=== PATIENT | female | born 1950 | race Caucasian/White ===

== ENCOUNTER → 2017-08-15 | Outpatient (CLI) | payer OTHER ==
[2017-08-15 13:56] LABS: BILIRUBIN,URINE NEGATIVE (NEGATIVE); BLOOD/HEMOGLOBIN,URINE NEGATIVE (NEGATIVE); GLUCOSE, URINE NEGATIVE (NEGATIVE); KETONES,URINE NEGATIVE (NEGATIVE); LEUKOCYTE ESTERASE ,URINE 1+ (NEGATIVE); NITRITES,URINE NEGATIVE (NEGATIVE); PROTEIN,URINE 2+ (NEGATIVE); UROBILINOGEN,URINE NORMAL (NORMAL)
[2017-08-15 14:01] LABS: BASOPHILS # (AUTO) 0.1 X10^3/uL (0.0-0.1); BASOPHILS % (AUTO) 1.1 % (0.2-1.0); EOSINOPHILS # (AUTO) 0.1 x10^3/uL (0.0-0.2); EOSINOPHILS % (AUTO) 1.6 % (0.9-2.9); HEMATOCRIT 41.6 % (36.0-47.0); HEMOGLOBIN 14.1 g/dL (12.0-16.0); LYMPHOCYTES # (AUTO) 1.9 X10^3/uL (1.3-2.9); LYMPHOCYTES % (AUTO) 32.1 % (21.0-51.0); MEAN CORPUSCULAR HEMOGLOBIN 31.4 pg (27.0-34.0); MEAN CORPUSCULAR HGB CONC 33.9 g/dL (33.0-35.0); MEAN CORPUSCULAR VOLUME 92.5 fL (80.0-100.0); MEAN PLATELET VOLUME 10.9 fL (7.4-11.0); MONOCYTES # (AUTO) 0.6 x10^3/uL (0.3-0.8); MONOCYTES % (AUTO) 10.4 % (0.0-13.0); NEUTROPHILS # (AUTO) 3.3 x10^3/uL (2.2-4.8); NEUTROPHILS % (AUTO) 54.8 % (42.0-75.0); PLATELET COUNT 133 X10^3/uL (150.0-450.0); RED CELL DISTRIBUTION WIDTH 12.9 % (11.6-16.5)
[2017-08-15 14:02] LABS: AMORPHOUS SEDIMENT,UR 1+ /HPF (NEGATIVE); APPEARANCE,URINE CLEAR (CLEAR); BACTERIA,URINE 1+ /HPF (NEGATIVE); COLOR,URINE YELLOW (YELLOW); RBC,URINE NONE SEEN /HPF (NONE SEEN); SQUAMOUS EPITHELIAL CELL,UR RARE /HPF (NEGATIVE)
[2017-08-15 14:09] LABS: ALANINE AMINOTRANSFERASE 22 Units/L (12-78); ALBUMIN 3.8 g/dL (3.4-5.0); ALKALINE PHOSPHATASE 107 Units/L (46-116); ASPARTATE AMINO TRANSFERASE 18 Units/L (15-37); BLOOD UREA NITROGEN 16 mg/dL (7-18); CALCIUM 8.9 mg/dL (8.5-10.1); CARBON DIOXIDE 26.8 mmol/L (21-32); CHLORIDE 108 mmol/L (98-107); CREATININE 1.05 mg/dL (0.55-1.02); SODIUM 144 mmol/L (136-145); eGFR BLACK RACES > 60 (>60); eGFR NON BLACK RACES 56 (>60)
--- NOTE | 2017-08-15 14:26 | RAD ---
HISTORY: Preoperative evaluation for back surgery Study: PA and lateral views of the chest Comparison:None Findings: No infiltrate, effusion or pneumothorax identified. The cardiac and mediastinal contours are within n ormal limits. There are degenerative changes of the thoracolumbar spine. IMPRESSION: 1. No acute cardiopulmonary abnormality. Reported By:
[2017-08-15 15:54] LABS: ERYTHROCYTE SEDIMENTATION RATE 2 MM/HOUR (0-20)
== END ==
LOC: LAB 13:10
PROVIDERS: ATTEND Orthopaedic Surgery
DX: Z01.818 Encounter for other preprocedural examination (principal); Z11.8 Encounter for screening for other infectious and parasitic diseases; Z79.899 Other long term (current) drug therapy; Z01.811 Encounter for preprocedural respiratory examination; Z01.810 Encounter for preprocedural cardiovascular examination; S32.010A Wedge compression fracture of first lumbar vertebra, initial encounter for closed fracture; X58.XXXA Exposure to other specified factors, initial encounter
CPT/HCPCS: 36415; 71046; 80053; 81001; 85025; 85652; 86140; 87640; 87641; 93005; 93010

== ENCOUNTER 2017-08-19 07:44 | Day surgery (SDC) | payer OTHER ==
[~2017-08-19 07:44] MED LIST: MARCAINE 0.25% INJ ONE; XYLOCAINE 1% and EPINEPHRINE 1:100,000 ONE
[2017-08-19] MEDS ORDERED: ANCEF 1 GM IV PREMIX* 1 GM/50 ML BAG IV ONE (07:59)
[2017-08-19] MEDS ORDERED: D5 LR 1000 ML 1,000 ML IV ONE (07:59)
[2017-08-19] MEDS ORDERED: FENTANYL INJ 100 mcg ONE (08:20)
[2017-08-19] MEDS ORDERED: KETALAR ONE (08:21)
[2017-08-19 11:07] VITALS: BP 111/56
--- NOTE | 2017-08-19 13:55 | OR.GENERIC ---
Post-Op Note Generic - Post-Op Note Operative Report: PRE-OP DIAGNOSIS: Osteoporosis, pathologic fractures L1 POST-OP DIAGNOSIS: Osteoporosis, pathologic fractures L1 PROCEDURE: KYPHON Balloon Kyphoplasty at L1 Level Insertion of KYPHON HV-R bone cement under low pressure at L1 levels. Date of Surgery- 08/19/2017 ANESTHESIA: mild sedation, local anesthesia COMPLICATIONS: None BLOOD LOSS: 10 cc approx. INDICATIONS: Patient is a 66-year-old white female who presents to the office for evaluation of the back pain. She reports that on a day before she was lifting a heavy antique bed with her grandson. She noticed hat when she was lifting and turning she and heard a pop and noticed severe pain in her lower back. She has had on going back pain before that. But this pain was very severe. She has seen a neurosurgeon in [place]. She was prescribed for physical therapy by him. Patient reports the pain has been getting worse. She had an magnetic resonance imaging which showed an L1 compression fracture. Pain is midline. Occasional radiation down the lower limb noted. No bowel and bladder disturbances noted. No motor or sensory disturbances noted. initial symptoms noted. Physical examination reveals a 66- year-old white female, well-developed well-nourished alert and oriented to time place and person. She seems to be in little distress when she is sitting and lying down on the bed. When she stands or she tries to get up from the sitting position she is in pain. She seems to have a normal affect. She stands with a little leaning to the RIGHT side. Examination of the back is done. No obvious deformities is noted. No scoliotic deformity is noted. Minimal angular kyphosis noted in the thoracolumbar junction. Tenderness noted on the [id number]. Also tenderness noted on the L2-3 and L3/L4 region. The tenderness in L2-3 and L3-4 region is more in the paraspinal and she reports it as more as a soreness rather than pain. There is severe tenderness to palpation of the L1 spinous process. Patient is unable to flex beyond 45. Extension is very painful. Rotation is not possible because the pain. Lateral bending is also very limited because of the pain. Neurological examination is negative for any motor or sensory weakness. Examination of hip is normal.patient 66-year-old female, postmenopausal, noticed severe pain in her back when she lifted her heavy [place] antique bed. She has been in pain since last year. She has tried bracing, heat, cold, physical therapy, narcotic medication, nonsteroidal medication and has noticed no response at all. Magnetic resonance imaging shows an L1 compression fracture as well as degenerative disk disease involving L23. Natural history and treatment discussions were done with her. X-ray done today shows a more than 30 percent collapse seenon the L1 vertebra. She wants to proceed with the surgical intervention. Balloon kyphoplasty procedure was described to her. Pre-and postprocedure instructions as well as risks and benefits involved were discussed with her. It is brought to her note is that she has an L1 compression fracture which is causing acute pain. But she also has severe degenerative disk as well as a retrolisthesis which might not respond to kyphoplasty. She might need some sort of treatment in the form of injections or surgery or a spinal cord stimulator lead from for that if the pain persists. She understands and verbalizes same.She presents with and is on medication therapy for, diabetes and hypertension. Radiographic imaging including MRI confirms compression fracture of the thoracolumbar spine including L1. Based on these findings, we have decided to perform KYPHON Balloon Kyphoplasty on the L1 fracture. PROCEDURE: The patient was brought to the operating room and local sedation was performed. The patient was positioned prone on the Jordan table. The back was prepped and draped. The image intensifier (C-arm) was brought into position and the L1 pedicles were identified and marked with a skin marker. A transpedicular approach to the vertebral body was appropriate. An 11-gauge needle was advanced through the L1 pedicle to the junction of the pedicle and vertebral body on the right side. Positioning was confirmed on the AP and lateral plane. Following satisfactory placement of the needle, the stylet was removed. A guide pin was inserted through the 11g to a point 3mm from the anterior cortex. AP and lateral images were taken to verify position and trajectory. Alongside of the guide pin a 1-cm paramedian incision was made. The needle was then removed leaving the guide pin in place. The osteointroducer was placed over the guide pin and advanced through the pedicle. Once I was at the junction of the pedicle and the vertebral body, a lateral image was taken to ensure that the cannula was positioned approximately 1cm past the vertebral body wall. Through the cannula, a drill was advanced into the vertebral body under fluoroscopic guidance toward the anterior cortex, creating a channel. The anterior cortex was probed with the guide pin to ensure no perforations in the anterior cortex. After completing the entry into the vertebral body, a 15-mm inflatable bone tamp was inserted through the cannula and advanced under fluoroscopic guidance into the vertebral body near the anterior cortex. The radiopaque marker bands on the bone tamp were identified using AP and lateral images. The above sequence of instrument placement was then repeated on the left side of the L1 vertebral body. Once both bone tamps were in position, they were inflated to 0.5 cc and 50 psi. Expansion of the bone tamps was done sequentially in increments of 0.25 to 0.5 cc of contrast, with careful attention being paid to the inflation pressures and balloon position. The inflation was monitored with AP and lateral imaging. The final balloon volume was 3.5 cc on the right side and 3 cc on the left. There was no breach of the lateral wall or anterior cortex of the vertebral body. As this was a 5 month old chronic fracture, Minimal Direct reduction of the fracture was achieved, end plate movement was noted and approximately 2 mm of height uatsdin was achieved. Under fluoroscopic imaging, and the use of the bone void fillers, internal fixation was achieved through a low-pressure injection of KYPHON HV-R bone cement. The cavity was filled with a total volume of 3 cc on the right side and 3 cc on the left side. Once the bone cement had hardened, the cannulas were then removed. Post-procedure, all incisions were closed with sutures. The patient was kept in the prone position for approximately 10 minutes post cement injection. She was then turned supine, monitored briefly and returned to the PACU. She was moving both her lower extremities at this time.Follow up as advised. Take medications as advised. Keep dessing clean and dry. Call office or go to ER in case of concerns.
[2017-08-19] MEDS ORDERED: ZOFRAN INJ 4 MG VIAL ONE (15:11)
[2017-08-19] MEDS ORDERED: DIPRIVAN VIAL ONE (15:11)
[2017-08-19] MEDS ORDERED: XYLOCAINE 2 % (PLAIN) ONE (15:11)
[2017-08-19] MEDS ORDERED: VERSED ONE (15:11)
== END 2017-08-19 11:03 | disposition home or self-care (01) ==
LOC: SURG1 07:44
PROVIDERS: ATTEND Orthopaedic Surgery
PROC: 0QU03JZ Supplement Lumbar Vertebra with Synthetic Substitute, Percutaneous Approach (ICD-10-PCS; 2017-08-19)
PROC: 0QS03ZZ Reposition Lumbar Vertebra, Percutaneous Approach (ICD-10-PCS; principal; 2017-08-19 08:30)
DX: M48.56XA Collapsed vertebra, not elsewhere classified, lumbar region, initial encounter for fracture (principal)
CPT/HCPCS: 76000; A4222; S0020; J0690; J2001; J2250; J2405; J3010; J3490; J7120